=== PATIENT | female | born 1990 | race Two or more races ===

== ENCOUNTER 2018-11-23 20:06 | Emergency (ER) | payer SELFPAY ==
[~2018-11-23] VITALS: Ht 157.5 cm; Wt 81.6 kg
[2018-11-23 20:21] VITALS: BP 152/92
[2018-11-24] MEDS ORDERED: BACITRACIN TOP OINT 1 UD PKG TOP ONE (00:30)
[2018-11-24] MEDS ORDERED: TETANUS-DIPTH-ACEL PERTUSSIS 0.5ML SYRG IM ONE (00:45)
== END 2018-11-24 00:47 | disposition home or self-care (01) ==
LOC: ER 20:10
DX: S61.213A Laceration without foreign body of left middle finger without damage to nail, initial encounter (principal); W26.0XXA Contact with knife, initial encounter; Y93.89 Activity, other specified; Y99.8 Other external cause status; Y92.89 Other specified places as the place of occurrence of the external cause
CPT/HCPCS: 12001; 73120; 81025; 90471; 90715

== ENCOUNTER 2021-09-25 20:04 | Emergency (ER) | payer MEDICAID ==
[~2021-09-25] VITALS: Ht 162.6 cm; Wt 63.5 kg
[2021-09-25 21:54] VITALS: BP 126/82
[2021-09-25] MEDS ORDERED: LORazepam 2MG/ML-1ML VIAL IM ONE (22:00)
== END 2021-09-25 22:28 | disposition home or self-care (01) ==
LOC: ER 20:04
DX: Z00.00 Encounter for general adult medical examination without abnormal findings (principal)